=== PATIENT | female | born 1960 | race Caucasian/White ===

== ENCOUNTER 2016-12-28 15:59 | Emergency (ER) | payer OTHER ==
[~2016-12-28] VITALS: Ht 162.6 cm; Wt 75.0 kg
[2016-12-28] MEDS ORDERED: RANI150T7 PO (16:09)
[2016-12-28] MEDS ORDERED: DIVA125T PO (16:09)
[2016-12-28] MEDS ORDERED: METO25 PO (16:09)
[2016-12-28] MEDS ORDERED: LAMO25 PO (16:09)
[2016-12-28] MEDS ORDERED: HYDROCODONE/ACETAMINOPHEN 5-325 MG TABLET PO ONE (18:30)
[2016-12-28] MEDS ORDERED: ONDANSETRON HCL 4 MG TABLET PO ONE (18:30)
[2016-12-28 18:35] VITALS: BP 147/73
== END 2016-12-28 21:32 | disposition home or self-care (01) ==
LOC: EMS 16:04
DX: M79.632 Pain in left forearm (principal); M25.512 Pain in left shoulder; I10 Essential (primary) hypertension
CPT/HCPCS: 73030; 73090; 99284; Q0162

== ENCOUNTER 2019-03-28 15:12 | Emergency (ER) | payer OTHER ==
[~2019-03-28] VITALS: Ht 162.6 cm; Wt 78.0 kg
[~2019-03-28 15:12] MED LIST: DIVA125T32 PO; LAMO25 PO; METO25 PO; RANI150T7 PO
[2019-03-28] MEDS ORDERED: HYDROCODONE/ACETAMINOPHEN 5-325 MG TABLET PO ONE (16:45)
[2019-03-28 17:54] VITALS: BP 124/69
== END 2019-03-28 18:36 | disposition home or self-care (01) ==
LOC: EMS 15:13
DX: L03.116 Cellulitis of left lower limb (principal); I10 Essential (primary) hypertension; Z90.710 Acquired absence of both cervix and uterus; Z88.6 Allergy status to analgesic agent
CPT/HCPCS: 93971

== ENCOUNTER 2020-11-12 12:53 | Emergency (ER) | payer OTHER ==
[~2020-11-12] VITALS: Ht 162.6 cm; Wt 89.0 kg
[~2020-11-12 12:53] MED LIST changes: -LAMO25 PO; +LAMO25TA25 PO
[2020-11-12] MEDS ORDERED: HYDROCODONE/ACETAMINOPHEN 5-325 MG TABLET PO ONE (13:45)
[2020-11-12] MEDS ORDERED: LIDOCAINE 1% 10 ML VIAL SQ ONE (14:00)
[2020-11-12] MEDS ORDERED: BACITRACIN 0.9 GM PACKET OINTMENT TP ONE (16:00)
[2020-11-12 16:06] VITALS: BP 134/95
== END 2020-11-12 16:16 | disposition home or self-care (01) ==
LOC: EMS 13:26
DX: S01.21XA Laceration without foreign body of nose, initial encounter (principal); W01.0XXA Fall on same level from slipping, tripping and stumbling without subsequent striking against object, initial encounter; Y93.89 Activity, other specified; Y92.89 Other specified places as the place of occurrence of the external cause; Y99.8 Other external cause status
CPT/HCPCS: 12011; 70450; 70486; 99285; J3490

== ENCOUNTER 2020-11-19 15:16 | Emergency (ER) | payer OTHER ==
[~2020-11-19] VITALS: Ht 165.1 cm; Wt 81.8 kg
[2020-11-19 16:47] VITALS: BP 142/90
== END 2020-11-19 16:50 | disposition home or self-care (01) ==
LOC: EMS 15:25
DX: S01.81XD Laceration without foreign body of other part of head, subsequent encounter (principal); I10 Essential (primary) hypertension; Z90.710 Acquired absence of both cervix and uterus; X58.XXXA Exposure to other specified factors, initial encounter
CPT/HCPCS: 99281; Z7502

== ENCOUNTER 2024-01-19 20:09 | Emergency (ER) | payer MEDICARE, OTHER ==
[~2024-01-19] VITALS: Ht 160 cm; Wt 72.7 kg
[~2024-01-19 20:09] MED LIST changes: -LAMO25TA25 PO; +LAMO25TA36 PO
[2024-01-19 20:39] VITALS: TEMP 99.6
[2024-01-19 21:11] LABS: BASOPHILS % (AUTO) 0.5 % (0.0-2.0); EOSINOPHILS % (AUTO) 0.6 % (1.0-6.0); HEMATOCRIT 39.9 % (36-46); HEMOGLOBIN 13.5 g/dL (12.0-16.0); LYMPHOCYTES # (AUTO) 0.8 K/uL (1.0-4.8); LYMPHOCYTES % (AUTO) 7.5 % (22.0-44.0); MEAN CORPUSCULAR HGB CONC 33.8 G/dL (31.0-37.0); MEAN CORPUSCULAR VOLUME 92 fL (80-100); MONOCYTES # (AUTO) 0.9 K/uL (0.1-1.0); MONOCYTES % (AUTO) 8.2 % (2.0-9.0); NEUTROPHILS # (AUTO) 9.1 K/uL (1.8-7.7); NEUTROPHILS % (AUTO) 83.2 % (40.0-70.0); PLATELET COUNT (AUTO) 210 K/uL (150-450); RED BLOOD CELL COUNT(AUTO) 4.35 MIL/uL (4.00-5.20); RED CELL DISTRIBUTION WIDTH 13.1 % (11.5-14.5); WHITE BLOOD COUNT (AUTO) 10.9 K/uL (4.5-11.0)
[2024-01-19 21:20] LABS: ANION GAP 7 mmol/L (8-16); CALCIUM, TOTAL 8.6 mg/dL (8.8-10.5); CARBON DIOXIDE 29 mmol/L (22-29); CHLORIDE 100 mmol/L (98-107); CREATININE 0.63 mg/dL (0.60-1.30); GLOMERULAR FILTR. RATE CALC > 60 mL/min (>60); GLUCOSE,RANDOM 135 mg/dL (70-110); POTASSIUM 3.4 mmol/L (3.5-5.1); SODIUM SERUM 136 mmol/L (136-145); UREA NITROGEN, BLOOD 14 mg/dL (7-18)
[2024-01-19 23:12] LABS: TROPONIN I-HIGH SENSITIVITY Less Than 4 ng/L (<51)
[2024-01-19] MEDS: ACETAMINOPHEN 500 MG TABLET PO ONE (23:49)
[2024-01-20 01:02] LABS: INFLUENZA A-RTPCR,COMBO NEGATIVE (NEGATIVE); INFLUENZA B-RTPCR,COMBO NEGATIVE (NEGATIVE); RESPIRATORY SYNCYTIAL VRS-PCR NEGATIVE (NEGATIVE)
[2024-01-20 01:09] LABS: SARS COVID19 RTPCR, COMBO POSITIVE (NEGATIVE)
[2024-01-20] MEDS ORDERED: ACET-3385 PO (01:12)
[2024-01-20 01:15] VITALS: BP 132/72; PULSE 80; RESP 16
== END 2024-01-20 01:42 | disposition home or self-care (01) ==
LOC: EMS 20:09
DX: U07.1 COVID-19 (principal); R42 Dizziness and giddiness; R11.0 Nausea; I10 Essential (primary) hypertension; Z88.6 Allergy status to analgesic agent
CPT/HCPCS: 99284; 0241U; 80048; 83735; 84484; 85025; 36415; 93005

== ENCOUNTER 2024-08-07 01:38 | Emergency (ER) | payer MEDICARE, MEDICAID ==
[~2024-08-07] VITALS: Ht 152.4 cm; Wt 77.7 kg
[~2024-08-07 01:38] MED LIST changes: +ACET-3385 PO
[2024-08-07 02:16] VITALS: TEMP 98
[2024-08-07 03:09] LABS: BASOPHILS % (AUTO) 0.9 % (0.0-2.0); EOSINOPHILS % (AUTO) 1.8 % (1.0-6.0); HEMATOCRIT 42.6 % (36-46); HEMOGLOBIN 14.3 g/dL (12.0-16.0); LYMPHOCYTES # (AUTO) 2.1 K/uL (1.0-4.8); LYMPHOCYTES % (AUTO) 24.6 % (22.0-44.0); MEAN CORPUSCULAR HEMOGLOBIN 30.6 pg (26.0-34.0); MEAN CORPUSCULAR HGB CONC 33.5 G/dL (31.0-37.0); MEAN CORPUSCULAR VOLUME 91 fL (80-100); MONOCYTES # (AUTO) 0.5 K/uL (0.1-1.0); MONOCYTES % (AUTO) 6.2 % (2.0-9.0); NEUTROPHILS # (AUTO) 5.7 K/uL (1.8-7.7); NEUTROPHILS % (AUTO) 66.5 % (40.0-70.0); PLATELET COUNT (AUTO) 241 K/uL (150-450); RED BLOOD CELL COUNT(AUTO) 4.66 MIL/uL (4.00-5.20); RED CELL DISTRIBUTION WIDTH 13.3 % (11.5-14.5); WHITE BLOOD COUNT (AUTO) 8.6 K/uL (4.5-11.0)
[2024-08-07 03:14] LABS: ANION GAP 12 mmol/L (8-16); CALCIUM, TOTAL 9.3 mg/dL (8.8-10.5); CARBON DIOXIDE 27 mmol/L (22-29); CHLORIDE 102 mmol/L (98-107); CREATININE 0.68 mg/dL (0.60-1.30); GLOMERULAR FILTR. RATE CALC > 60 mL/min (>60); GLUCOSE,RANDOM 118 mg/dL (70-110); POTASSIUM 3.5 mmol/L (3.5-5.1); SODIUM SERUM 141 mmol/L (136-145); UREA NITROGEN, BLOOD 10 mg/dL (7-18)
[2024-08-07 03:24] LABS: ALANINE AMINOTRANSFERASE 25 U/L (12-78); ALBUMIN 3.8 g/dL (3.4-5.0); ALKALINE PHOSPHATASE 79 U/L (46-116); ASPARTATE AMINOTRANSFERASE 24 U/L (15-37); BILIRUBIN,TOTAL 0.3 mg/dL (0.1-1.0); LIPASE 33 U/L (16-77); TOTAL PROTEIN, SERUM 8.2 g/dL (6.4-8.2); TROPONIN I-HIGH SENSITIVITY 5 ng/L (<51)
[2024-08-07] MEDS: ACETAMINOPHEN 500 MG TABLET PO ONE (03:32)
[2024-08-07] MEDS: LIDOCAINE 5% TRANSDERMAL PATCH TD ONE (03:32)
[2024-08-07 03:49] VITALS: BP 138/55; PULSE 84; RESP 16; O2SAT 98
[2024-08-07] MEDS ORDERED: LIDO700A15 TP (04:31)
== END 2024-08-07 04:48 | disposition home or self-care (01) ==
LOC: EMS 01:38
DX: R09.81 Nasal congestion (principal); I10 Essential (primary) hypertension; G40.909 Epilepsy, unspecified, not intractable, without status epilepticus; Z79.899 Other long term (current) drug therapy; Z88.6 Allergy status to analgesic agent; Z90.710 Acquired absence of both cervix and uterus
CPT/HCPCS: 71045; 80048; 80076; 83690; 84484; 85025; 93005; 99285; 36415-L1; 36415-TC

== ENCOUNTER 2024-11-11 13:52 | Emergency (ER) | payer MEDICARE, MEDICAID ==
[~2024-11-11] VITALS: Ht 165.1 cm; Wt 72.7 kg
[~2024-11-11 13:52] MED LIST changes: +LIDO-57 TP
[2024-11-11 14:05] VITALS: TEMP 98.8
[2024-11-11] MEDS ORDERED: LAMO200T10 PO (14:10)
[2024-11-11] MEDS ORDERED: NIFE-79 PO (14:10)
[2024-11-11 14:45] VITALS: BP 146/67; PULSE 70; RESP 18; O2SAT 98
[2024-11-11] MEDS ORDERED: LATA2.5D14 OU (15:22)
[2024-11-11] MEDS ORDERED: HYDR12.54 PO (15:22)
[2024-11-11] MEDS ORDERED: CETI10TA58 PO (15:22)
[2024-11-11] MEDS ORDERED: BRIM5DRO9 OU (15:22)
[2024-11-11] MEDS: methocarbamoL 500 MG TABLET PO ONE (15:26)
[2024-11-11] MEDS: ACETAMINOPHEN 500 MG TABLET PO ONE (15:27)
[2024-11-11] MEDS ORDERED: METH-812 PO (16:53)
== END 2024-11-11 17:21 | disposition home or self-care (01) ==
LOC: EMS 13:55
DX: M62.838 Other muscle spasm (principal); I10 Essential (primary) hypertension; G40.909 Epilepsy, unspecified, not intractable, without status epilepticus; Z90.710 Acquired absence of both cervix and uterus; Z88.6 Allergy status to analgesic agent; Z79.899 Other long term (current) drug therapy
CPT/HCPCS: 99283

== ENCOUNTER 2025-04-12 07:58 | Emergency (ER) | payer MEDICARE, OTHER ==
[~2025-04-12] VITALS: Ht 160 cm; Wt 68.2 kg
[~2025-04-12 07:58] MED LIST changes: -ACET-3385 PO; +BRIM5DRO9 OU; +CETI10TA58 PO; -DIVA125T32 PO; +HYDR12.54 PO; +LAMO200T10 PO; -LAMO25TA36 PO; +LATA2.5D7 OU; -LIDO-57 TP; +METH-812 PO; -METO25 PO; +NIFE-79 PO; -RANI150T7 PO
[2025-04-12 08:33] VITALS: TEMP 98.1
[2025-04-12] MEDS: OMEPRAZOLE 20 MG CAPSULE PO ONE (10:56)
[2025-04-12] MEDS: KETOROLAC TROMETHAMINE 60 MG/2 ML VIAL IM ONE (10:56)
[2025-04-12] MEDS: ACETAMINOPHEN 500 MG TABLET PO ONE (10:56)
[2025-04-12 11:33] VITALS: BP 124/72; PULSE 86; RESP 16; O2SAT 99
[2025-04-12] MEDS ORDERED: IBUP-1554 PO (11:55)
[2025-04-12] MEDS ORDERED: OMEP-148 PO (11:55)
[2025-04-12] MEDS ORDERED: BACL20TA PO (11:55)
[2025-04-12] MEDS ORDERED: ACET-66 PO (11:55)
== END 2025-04-12 13:02 | disposition home or self-care (01) ==
LOC: EMS 07:58
DX: G44.209 Tension-type headache, unspecified, not intractable (principal); M54.2 Cervicalgia; G40.909 Epilepsy, unspecified, not intractable, without status epilepticus; I10 Essential (primary) hypertension; Z88.6 Allergy status to analgesic agent; Z90.710 Acquired absence of both cervix and uterus; Z79.899 Other long term (current) drug therapy
CPT/HCPCS: 99285; 70450; 96372; J1885